=== PATIENT | male | born 1930 | race Caucasian/White ===

== ENCOUNTER 2016-07-01 10:49 | Inpatient (IN) | payer MEDICARE, OTHER ==
[2016-07-01] VITALS (12 sets, daily range): BP systolic 100–133; BP diastolic 53–78; PULSE 74–151; RESP 14–24; O2SAT 94–99
[~2016-07-01] VITALS: Ht 182.9 cm; Wt 92.0 kg
[~2016-07-01 10:49] MED LIST: ACET325C PO; ALBU8.5H2 INHALATION; ATOR20TA65 PO; BECL8.7A6 INH; BENA20TA PO; DILT120C52 PO; FURO40TA4 PO; GABA800T2 PO; GUAI600T2 PO; HYDR-4003 PO; MAGN400C PO; MELA1TAB21 PO; NAM10 PO; OMEG-38 PO; OSLT75C PO; TIOT18CA3 IH; WARF2.5T82 PO; WARF5TAB7 PO; ZIT250 PO
--- NOTE | 2016-07-01 11:24 | ED.REPORT ---
HPI-General Illness Date of Service Jul 01, 2016 ED Provider: Joce Dennis MD Patient is an 86 year old male on Coumadin who presents to the ED after being referred by urgent care for a stiff neck onset 3 days ago. Associated symptoms include neck pain with movement in all directions. He denies recent trauma, fever, headache, numbness, weakness, myalgia, rash, or any other symptoms. He had a fever at urgent care. Today he has only had his regular medications today. Tylenol made his neck pain bearable for the past two days. Nursing Notes Stated Complaint: POSS MENINGITIS Chief Complaint: General Complaint Nursing Notes Reviewed: Yes ([employer] not reconciled - EMR indicates ho warfarin use) Allergies: Coded Allergies: pravastatin (Verified Allergy, Unknown, 06/20/16) Scheduled Atorvastatin Calcium (Atorvastatin Calcium) 20 Mg Tablet 20 MG PO HS Azithromycin (Zithromax) 250 Mg Tablet 250 MG PO DAILY Beclomethasone Dipropionate (Qvar) 8.7 Gm Aer.w.adap 1-2 PUFFS INH BID Benazepril (Benazepril) 20 Mg Tablet 10 MG PO DAILY Diltiazem ER (Cartia XT) 120 Mg Cap.er.24h 120 MG PO BID Furosemide (Furosemide) 40 Mg Tablet 40 MG PO daily to BID Gabapentin (Gabapentin) 800 Mg Tablet 800 MG PO BID Magnesium Oxide (Magnesium) 400 Mg Capsule 400 MG PO DAILY Melatonin/Pyridoxine HCl (B6) (Melatonin 10 mg Tablet) 1 Each Tab.mphase 1 EACH PO HS Memantine (Namenda) 10 Mg Tablet 10 MG PO BID [place]-3/Dha/Epa/Fish Oil (Fish Oil 1,000 mg Softgel) 1 Each Capsule 1 EACH PO HS [place]-3/Dha/Epa/Fish Oil (Fish Oil 1,000 mg Softgel) 1 Each Capsule 2 EACH PO QAM Oseltamivir Phosphate (Tamiflu) 10 Cap/Pkg Capsule 75 MG PO BID Tiotropium [place] (Spiriva) 18 Mcg Cap.w.dev 18 MCG IH DAILY Warfarin Sodium (Warfarin Sodium) 2.5 Mg Tablet 2.5 MG PO M,W,F Warfarin Sodium (Warfarin Sodium) 5 Mg Tablet 5 MG PO ,,, Scheduled PRN Acetaminophen (Acetaminophen) 325 Mg Capsule 650 MG PO BID PRN PRN For Pain Albuterol HFA (Proair HFA) 8.5 Gm Hfa.aer.ad 2 PUFFS INHALATION q4-6 hours PRN PRN For Shortness of Breath Guaifenesin (Mucinex) 600 Mg Tablet.er 600 MG PO BID PRN PRN For Cough Hydrocodone-Acetaminophen 5-325 mg (Hydrocodone-Acetaminophen 5-325 mg) 1 Each Tablet 0.5-1 TABLET PO q6 hours PRN PRN For Pain General Time Seen by MD: 11:13 Chief Complaint Other (Neck pain) Hx Obtained From: Patient, Spouse Arrived By: Walk-in Sudden in Onset?: Yes Onset Occurred: 3 days ago Symptom Duration: Since onset Recent Healthcare: Recent hospitalization Similar Sx Previous: No Past Medical History Past Medical History Notes: Admit for pneumonia and influenza A and COPD Exacerbation 06/22/16 Past Medical History 1. History of lung CA medially located, left upper lobe lesion with an SUV of 6.26 seen on PET-CT scan dated December 30, 2014, as above, s/p radiation therapy with desiree Pimentel 2. Alzheimer's disease clinically presenting with early stage, on memantine 10 mg b.i.d. with good results per his significant other, which is his . 3. COPD, stable. The patient is able walk 1.5 miles per day without difficulty. 4. Atrial fibrillation, on Coumadin. 5. Type 2 diabetes, diet-controlled. 6. Hyperlipidemia. 7. Hypertension. 8. Sleep apnea. 9. Recurrent aspiration pneumonia Reports: Asthma, COPD, Diabetes mellitus Past Surgical History Two Left shoulder surgeries, replacement and subsequent revisions. prostate surgery, skin cancer surgery Reports: Appendectomy, Tonsillectomy Family History Reviewed, not relevant Smoking History Former Smoker Social History Other Social History: Good social support, , Local resident Ambulatory Status Independent Review of Systems +neck stiffness Full Review of Systems Constitutional: Denies: Fever GI: Denies: Nausea, Vomiting Musculoskeletal: Reports: Neck pain, Denies: Myalgia Skin: Denies Rash Neurologic: Denies: Headache, Numbness, Weakness Complete sys rev & neg: except as marked. Physical Exam Vital Signs Vital Signs Date Time Temp Pulse Resp B/P Pulse Ox O2 Delivery O2 Flow Rate FiO2 07/01/16 12:50 80 19 103/64 99 Room Air 07/01/16 11:16 36.5 94 24 119/77 99 Room Air 07/01/16 11:06 94 123/78 96 Room Air Initial VS: Reviewed, Unavailable, Vital signs normal Head / Eyes: Atraumatic, Normocephalic Neurologic: Alert, Oriented, Nonfocal Psychiatric: Mood/affect normal, Behavior normal, Normal thought content General/Constitutional: Awake, Alert, No acute distress, Well developed Hard hearing Neck: Atraumatic Does not want to move head for flexion, extention, or rotation. Respiratory / Chest: Atraumatic, No respiratory distress coarse lung sounds. Scattered rhonchi. No shortness of breath Cardiovascular: Peripheral circulation NL Abdomen: Atraumatic, Soft, Non-tender Skin: No rash Multiple bruisin on extremities (secondary to blood thinners) Interpretation & Diagnostics Lab Results Interpretation Result Diagram: 07/01/16 1133 07/01/16 1133 Test 07/01/16 11:13 07/01/16 11:33 Prothrombin Time 30.8sec (8.1-12.5) Prothromb Time International Ratio 2.82ratio White Blood Count 11.3th/mm3 (3.8-10.1) Red Blood Count 4.51mil/mm3 (4.40-5.80) Hemoglobin 14.4g/dL (13.8-17.2) Hematocrit 43.5% (41.0-50.0) Mean Corpuscular Volume 96.5fL (81-100) Mean Corpuscular Hemoglobin 31.9pg (27.0-35.0) Mean Corpuscular Hemoglobin Concent 33.1% (32.0-37.0) Red Cell Distribution Width 14.5% (12.3-15.4) Platelet Count 201bil/L (150-400) Neutrophils (%) (Auto) 77.0% (40-74) Lymphocytes (%) (Auto) 6.0% (14-46) Monocytes (%) (Auto) 15.8% (4-12) Eosinophils (%) (Auto) 0.6% (0-5) Basophils (%) (Auto) 0.2% (0-3) Sodium Level 139mEq/L (134-144) Potassium Level 4.2mEq/L (3.5-5.2) Chloride Level 100mEq/L (97-108) Carbon Dioxide Level 30mmol/L (18-29) Blood Urea Nitrogen 23mg/dL (8-27) Creatinine 0.55mg/dL (0.76-1.27) Estimat Glomerular Filtration Rate 150mL/min (>59) Glucose Level 107mg/dL (60-99) Lactic Acid Level 1.4mmol/L (0.4-2.0) Calcium Level 8.8mg/dL (8.5-10.1) Total Bilirubin 0.5mg/dL (0.0-1.2) Aspartate Amino Transf (AST/SGOT) 26U/L (0-50) Alanine Aminotransferase (ALT/SGPT) 26U/L (0-44) Alkaline Phosphatase 53U/L (25-160) Total Protein 7.6g/dL (6.4-8.4) Albumin 3.1g/dL (3.4-5.0) Lab Results Interpretation: CMP mild leukocytosis CMP normal INR therapeutic (patient reports INR greater than 4 over this week and was decreased) Lactic acid normal Cultures pending X-Ray Chest Interpretation Chest Xray Interpretation: IMPRESSION: No definite interval change or acute disease. Chronic diffuse/interstitial lung disease. Dictated by: Earl Canas M.D. on 07/01/2016 at 12:15 Approved by: Earl Canas M.D. on 07/01/2016 at 12:15 View: Portable, 1 view Interpretation / Wet Read by: Interpret - Radiologist CT Head Interpretation BRAIN CT: IMPRESSION: No acute intracranial process Mild right maxillary sinus disease Dictated by: Earl Canas M.D. on 07/01/2016 at 13:05 Approved by: Earl Canas M.D. on 07/01/2016 at 13:05 Study: Head CT no contrast Interpretation / Wet Read by: Interpret - Radiologist CT C-Spine Interpretation IMPRESSION: No acute fracture Severe diffuse cervical disc degeneration and facet arthropathy. Dictated by: Earl Canas M.D. on 07/01/2016 at 13:03 Approved by: Earl Canas M.D. on 07/01/2016 at 13:03 Study type: CT no contrast Interpretation / Wet Read by: Interpret - Radiologist Re-Eval/Medical Decision Med Decision/Clinical Course This is an 86-year-old male with a recent hospitalization for influenza and pneumonia status post treatment with antibiotics and Tamiflu now presents referred from urgent care with concern for meningitis. He presents complaining of severe neck stiffness with any movement, and a fever documented in urgent care. He denies rash or exanthem, denies new focal numbness or weakness or paresthesia, reports the neck stiffness is very considerable and very uncomfortable. He is not febrile in the emergency department. He does not appear to Source of Hx: Old records Time of Eval: 14:02 Re-Evaluation/Progress Note: rechecked patient. Discussed plan for treatment and desire for admission. Patient understands and agrees with plan. All questions addressed at this time. Consultation : Referral / Consult Name: Wilfrid Long MD Consulted With: Hospitalist Call Returned at: 14:23 Foxer: Agrees with eval, Agrees with plan, Accepts admit Note: Discussed patient's case. Accepts admit. Counseled Regarding: Diagnosis, Lab results, Need for admission Discharge & Departure Primary Impression: Neck stiffness Additional Impression: Anticoagulated on Coumadin Disposition: ADMITTED TO HOSPITAL Referrals: Cy Soto MD (PCP) Scribe Attestation Portions of this note were transcribed by Willy Ledezma. I, Dr. Dennis personally performed the history, physical exam and medical decision-making; I reviewed and confirmed the accuracy of the information in the transcribed note. Signed by: Willy Ledezma 07/01/16, 1430 copies to: Cy Soto MD, Matthew F MD Jul 01, 2016 11:24 WILLY LEDEZMA Jul 01, 2016 11:30
[2016-07-01] MEDS ORDERED: HYDROmorphone 0.5 mg/0.5 mL iSecure Syringe IVPUSH PRN (11:50)
[2016-07-01] MEDS ORDERED: Ondansetron 2 mg/mL 2 mL Inj IVPUSH ONE (11:50)
[2016-07-01] MEDS ORDERED: cefTRIAXone Inj 2,000 MG in IV Premix 1 EACH IV ONE (11:50)
[2016-07-01 12:10] LABS: BASOPHILS % (AUTO) 0.2 % (0-3); EOSINOPHILS % (AUTO) 0.6 % (0-5); MONOCYTES % (AUTO) 15.8 % (4-12); Mean Corpuscular Hemoglobin 31.9 pg (27.0-35.0); Mean Corpuscular Volume 96.5 fL (81-100); Platelet Count 201 bil/L (150-400)
--- NOTE | 2016-07-01 12:16 | DRSVH ---
PROCEDURE: X-RAY CHEST ONE VIEW, PORTABLE ([id number]) INDICATIONS: ro pneumonia TECHNIQUE: One view of the chest was acquired. COMPARISON: [facility], CT, CT CHEST WO CON, 05/29/2016, 9:17. Outside Film, RG, CHEST 2VW , 09/04/2015, 12:49. Outside Film, RG, CHEST 1VW (PORTABLE) , 09/06/2015, 7:13. [facility], CR, XR CHEST 2VW, 06/20/2016, 12:00. FINDINGS: Surgical changes and devices: Bilateral shoulder arthroplasties Lungs and pleura: No pleural effusions or pneumothorax. Lungs are clear. Diffuse/interstitial rodriguez ges Mediastinum: Mediastinal contours appear normal. Heart size is normal. Bones and chest wall: No suspicious bony lesions. Overlying soft tissues appear unremarkable. IMPRESSION: No definite interval change or acute disease. Chronic diffuse/interstitial lung disease. Dictated by: Earl Canas M.D. on 07/01/2016 at 12:15 Approved by: Earl Canas M.D. on 07/01/2016 at 12:15
[2016-07-01 12:41] LABS: INR 2.82 ratio
--- NOTE | 2016-07-01 13:05 | DRSVH ---
PROCEDURE: CT CERVICAL SPINE WITHOUT CONTRAST ([id number]) INDICATIONS: pain TECHNIQUE: Noncontrast 3 mm thick sections acquired from the skull base to the T4 level. Sagittal and coronal r eformats were then constructed. For radiation dose reduction, the following was used: automated exp osure control, adjustment of mA and/or kV according to patient size. COMPARISON: [facility], CT, CT CHEST WO CON, 05/29/2016, 9:17. [facility], CT, CHEST W/O CONTRAST, 12/15/2014, 13:20. FINDINGS: Image quality: Excellent. Bones: No fractures or dislocations. Visualized superior ribs are intact. Diffuse cervical disc de generation and facet arthropathy with reversal of the normal cervical lordosis. Minimal grade 1 anter olisthesis of C3 on C4. Diffuse osteopenia Soft tissues: Prevertebral soft tissues are normal in thickness. Prominent left upper lobe nodular c onsolidation better characterized on recent chest CT dated 05/29/16. No paravertebral hematomas. No a pical pneumothoraces. IMPRESSION: No acute fracture Severe diffuse cervical disc degeneration and facet arthropathy. Dictated by: Earl Canas M.D. on 07/01/2016 at 13:03 Approved by: Earl Canas M.D. on 07/01/2016 at 13:03
--- NOTE | 2016-07-01 13:07 | DRSVH ---
PROCEDURE: CT BRAIN WITHOUT CONTRAST ([id number]) INDICATIONS: pain TECHNIQUE: Noncontrast 4.5 mm thick angled axial sections acquired from the foramen magnum to the vertex, with c oronal reformats. COMPARISON: None. FINDINGS: Image quality: Excellent. CSF spaces: Basal cisterns are patent. No extra-axial fluid collections. The ventricles are symmet suzi in size and shape. Brain: No intracranial bleeds or masses. There is cerebral volume loss for age, with resultant vent ricular and sulcal prominence. There are periventricular and deep white matter chronic small vessel ischemic changes. There is intracranial internal carotid artery atherosclerosis. Skull and face: Calvarium and visualized facial bones appear intact, without suspicious lesions. Sinuses: Mild right maxillary sinus disease IMPRESSION: No acute intracranial process Mild right maxillary sinus disease Dictated by: Earl Canas M.D. on 07/01/2016 at 13:05 Approved by: Earl Canas M.D. on 07/01/2016 at 13:05
[2016-07-01] MEDS ORDERED: 0.9% Sodium Chloride 250 ML IV ONE (13:20)
[2016-07-01] MEDS ORDERED: Alum-Mag Hydrox-Simeth 30 mL Suspension PO PRN (16:50)
[2016-07-01] MEDS ORDERED: Ondansetron 2 mg/mL 2 mL Inj IVPUSH PRN (16:50)
[2016-07-01] MEDS ORDERED: Polyethylene Glycol (PEG) 17 Gm Powder PO PRN (16:50)
--- NOTE | 2016-07-01 17:13 | NUR ---
Admission Patient admitted to the floor at 1515 from the ED. Medical list and admission questions completed. Patient complained of neck pain at 4/10 with no movement and 8/10 with movement. Vitals - t-36.8, bp-133/75, p-85, rr-19, o2- 97 on RA. Oriented patient to the room. Placed bed in lowest position and call light within reach.
[2016-07-01 17:35] LABS: INR 2.41 ratio
--- NOTE | 2016-07-01 18:46 | PCM.HPMED ---
Subjective Date of Service Jul 01, 2016 Primary Provider: Admitting Physician: Wilfrid Long MD Primary Care Physician: Cy Soto MD Attending Physician: Wilfrid Long MD Admit Status: From the Emergency Department Chief Complaint: Fever of 101 with neck stiffness for 3 days. History of Present Illness: He was recently admitted and treated for pneumonia and influenza. After discharge he developed a fever up to 101 today and has had 3 days of increasing neck stiffness, quite severe. There has been no headache and no rash. His INR is too high at 2.8 to proceed with a spinal fluid tap and so the lumbar puncture will be deferred waiting for the fresh frozen plasma to bring the INR down. His presenting white blood count is only 11.3. There is no neck trauma. He will be given ceftriaxone as a precaution. The CT of the C-spine and brain are normal. He was just in the hospital 10 days ago for Influenza and Pneumonia, discharging after 2 nights on Tamiflu and Zithromax, which he has completed just 3 days ago. He has had a mild cough but no chest pain or shortness of breath. He is very [place] so his speaks for him. He also has early Alzheimers. Review of Systems: No Chills, Sweats, SOB, Chest Pain, Abdominal Pain, Seizures, Headache, bleeding , dysuria, Joint pains, depression, new allergies, diarrhea, Positive for hearing loss, chronic cough, fever, neck pain. Allergies Coded Allergies: pravastatin (Verified Allergy, Unknown, 06/20/16) Home Medications Atorvastatin Calcium (Atorvastatin Calcium) 20 Mg Tablet 20 MG PO HS (Reported) Azithromycin (Zithromax) 250 Mg Tablet 250 MG PO DAILY Prescribed by: ISELA GUTIERREZ DO Beclomethasone Dipropionate (Qvar) 8.7 Gm Aer.w.adap 1-2 PUFFS INH BID (Reported ) Benazepril (Benazepril) 20 Mg Tablet 10 MG PO DAILY (Reported) Diltiazem ER (Cartia XT) 120 Mg Cap.er.24h 120 MG PO BID (Reported) Furosemide (Furosemide) 40 Mg Tablet 40 MG PO daily to BID (Reported) Gabapentin (Gabapentin) 800 Mg Tablet 800 MG PO BID (Reported) Magnesium Oxide (Magnesium) 400 Mg Capsule 400 MG PO DAILY (Reported) Melatonin/Pyridoxine HCl (B6) (Melatonin 10 mg Tablet) 1 Each Tab.mphase 1 EACH PO HS (Reported) Memantine (Namenda) 10 Mg Tablet 10 MG PO BID (Reported) [place]-3/Dha/Epa/Fish Oil (Fish Oil 1,000 mg Softgel) 1 Each Capsule 1 EACH PO HS (Reported) [place]-3/Dha/Epa/Fish Oil (Fish Oil 1,000 mg Softgel) 1 Each Capsule 2 EACH PO QAM (Reported) Oseltamivir Phosphate (Tamiflu) 10 Cap/Pkg Capsule 75 MG PO BID Prescribed by: ISELA GUTIERREZ DO Tiotropium [place] (Spiriva) 18 Mcg Cap.w.dev 18 MCG IH DAILY (Reported) Warfarin Sodium (Warfarin Sodium) 2.5 Mg Tablet 2.5 MG PO ,, (Reported) Warfarin Sodium (Warfarin Sodium) 5 Mg Tablet 5 MG PO ,,, (Reported) As needed Acetaminophen (Acetaminophen) 325 Mg Capsule 650 MG PO BID PRN PRN For Pain ( Reported) Albuterol HFA (Proair HFA) 8.5 Gm Hfa.aer.ad 2 PUFFS INHALATION q4-6 hours PRN PRN For Shortness of Breath (Reported) Guaifenesin (Mucinex) 600 Mg Tablet.er 600 MG PO BID PRN PRN For Cough (Reported ) Hydrocodone-Acetaminophen 5-325 mg (Hydrocodone-Acetaminophen 5-325 mg) 1 Each Tablet 0.5-1 TABLET PO q6 hours PRN PRN For Pain (Reported) PMH 1. Metabolically active, medially located left upper lobe lesion with an SUV of 6.26 seen on PET-CT scan dated December 30, 2014, without evidence of distant spread. The patient is status post definitive radiation therapy with Dr. Pimentel in June 2015. He remains in clinical remission at this time. 2. Early stage Alzheimer's disease. 3. COPD. 4. Atrial fibrillation, on Coumadin. 5. Type 2 diabetes. 6. Hyperlipidemia. 7. Hypertension. 8. Sleep apnea with use of CPAP Surgical History Appendectomy Tonsillectomy Prostate surgery Skin cancer removal Left shoulder surgery Family History No cancer or blood clots Social History Hx Alcohol Use: No Hx Substance Use: No Hx Tobacco Use: Yes Smoking Status: Former Smoker Additional Information He lives with his in [place]. His speaks for him as he has mild dementia and poor hearing. His PCP is Dr. Soto Exam Vital Signs Vital Sign - Last Date Time Temp Pulse Resp B/P Pulse Ox O2 Delivery O2 Flow Rate FiO2 07/01/16 15:17 36.8 151 19 133/75 97 Room Air Exam He is alert and oriented to name. He smiles and defers to his . He is hard of hearing. Pupils are equally round and reactive to light and accommodation. Extraocular muscles are intact. Sclera are pink and nonicteric. Throat has no redness. There are no lymph nodes felt in the head, neck, supraclavicular area. There is no thyromegaly. JVD is less than 6 cm. No carotid bruits are heard. Heart is irregularly irregular without murmur. Lungs have wheezes bilaterally. Abdomen is soft, nontender, bowel tones are normal, there is no organomegaly. There is no ankle edema. Neuro exam is noted for less than 5 rotation range of motion of his neck bilaterally due to severe neck pain. There is no posterior neck tenderness or upper back muscle tenderness. There is no photophobia. Motor function is 4 out of 5 throughout. Deep tendon reflexes are normal. There is no tremor. Skin has multiple bruises on his arms with chronic discoloration of his ankle skin. Lab and Diagnostics Result Diagram: 07/01/16 1133 07/01/16 1133 X-Rays, CTs and MRIs CT BRAIN WITHOUT CONTRAST ([id number]) INDICATIONS: pain TECHNIQUE: Noncontrast 4.5 mm thick angled axial sections acquired from the foramen magnum to the vertex, with coronal reformats. COMPARISON: None. FINDINGS: Image quality: Excellent. CSF spaces: Basal cisterns are patent. No extra-axial fluid collections. The ventricles are symmetric in size and shape. Brain: No intracranial bleeds or masses. There is cerebral volume loss for age , with resultant ventricular and sulcal prominence. There are periventricular and deep white matter chronic small vessel ischemic changes. There is intracranial internal carotid artery atherosclerosis. Skull and face: Calvarium and visualized facial bones appear intact, without suspicious lesions. Sinuses: Mild right maxillary sinus disease IMPRESSION: No acute intracranial process Mild right maxillary sinus disease Additional Diagnostics: CT CERVICAL SPINE WITHOUT CONTRAST ([id number]) INDICATIONS: pain TECHNIQUE: Noncontrast 3 mm thick sections acquired from the skull base to the T4 level. Sagittal and coronal reformats were then constructed. For radiation dose reduction, the following was used: automated exposure control, adjustment of mA and/or kV according to patient size. COMPARISON: [facility], CT, CT CHEST WO CON, 05/29/2016, 9:17. [facility], CT, CHEST W/O CONTRAST, 12/15/2014, 13:20. FINDINGS: Image quality: Excellent. Bones: No fractures or dislocations. Visualized superior ribs are intact. Diffuse cervical disc degeneration and facet arthropathy with reversal of the normal cervical lordosis. Minimal grade 1 anterolisthesis of C3 on C4. Diffuse osteopenia Soft tissues: Prevertebral soft tissues are normal in thickness. Prominent left upper lobe nodular consolidation better characterized on recent chest CT dated 05/29/16. No paravertebral hematomas. No apical pneumothoraces. IMPRESSION: No acute fracture Severe diffuse cervical disc degeneration and facet arthropathy. Assessment & Plan Possible Meningits -high fever and neck stiffness -INR 2.8 before FFP -Give additional FFP after repeat INR is 2.4 -proceed with LP when INR less than 1.5 -Begin Rocephin and discuss treatment duration with ID once the CSF has been collected. -with Fever/Severe Neck pain/stiffness and antibiotics given well before CSF collection it is likely that the duration of IV antibiotics will be equivalent to standard Bacterial Meningitis therapy even if the CSF culture is ultimately negative. Recent Influenza Pneumonia -No symptoms or exam/test findings to suggest recurrence. Atrial Fibrillation -Hold Coumadin until LP can be safely done and chances of bleeding are back to baseline after the LP is done. -Continue Diltiazem Hypertension -Continue Benazepril and Lasix Alzheimers Dementia -His has been helpful and the patient is not agitated or anxious, despite the neck pain Metabolically active, medially located left upper lobe lesion with an SUV of 6.26 seen on PET-CT scan dated December 30, 2014, without evidence of distant spread. The patient is status post definitive radiation therapy with Dr. Pimentel in June 2015. He remains in clinical remission at this time. COPD. -Continue Qvar, Albuterol and Spiriva Type 2 diabetes. -Continue Dietary control Hyperlipidemia. -Continue Lipitor Sleep apnea with use of CPAP Resuscitation Status: CPR: Attempt Resuscitation Wilfrid Long MD Jul 01, 2016 15:37
[2016-07-01 22:27] LABS: INR 2.03 ratio
[2016-07-02] VITALS (14 sets, daily range): BP systolic 115–143; BP diastolic 65–81; PULSE 72–97; RESP 14–22; O2SAT 91–98
--- NOTE | 2016-07-02 05:29 | NUR ---
FFP administration FFP x1 unit given in ED and FFPx3 units given on shift production supervisor on [facility]. No reaction. Per MD pt needs to have INR LESS THAN 1.5 to do the spinal tap. Next INR draw at 0500.
[2016-07-02 06:36] LABS: INR 1.76 ratio
[2016-07-02 06:44] LABS: BASOPHILS % (AUTO) 0.2 % (0-3); EOSINOPHILS % (AUTO) 1.6 % (0-5); MONOCYTES % (AUTO) 13.2 % (4-12); Mean Corpuscular Hemoglobin 31.9 pg (27.0-35.0); Mean Corpuscular Volume 97.5 fL (81-100); NEUTROPHILS % (AUTO) 76.8 % (40-74); Platelet Count 203 bil/L (150-400)
[2016-07-02 08:48] LABS: APPEARANCE,URINE CLEAR (CLEAR,HAZY); COLOR,URINE YELLOW (YELLOW)
[2016-07-02 08:49] LABS: OCCULT BLOOD,URINE TRACE (NEGATIVE); UROBILINOGEN,URINE NORMAL (NORMAL)
[2016-07-02] MEDS: 0.9% Sodium Chloride 250 ML IV SCH (09:18)
[2016-07-02 09:50] LABS: INR 1.73 ratio
--- NOTE | 2016-07-02 10:00 | NUR ---
FFP administration administered 1un FFP. INR 1.76 and needs to be 1.5 or less for spinal tap. pts vital signs remain within normal limits and not reaction occurred. per MD orders, nurse ordered protime 2hrs post transfusion.
[2016-07-02] MEDS: Diltiazem CD 120 mg ER24 Capsule PO SCH ×2 (13:12→20:22)
[2016-07-02 14:15] LABS: INR 1.55 ratio
--- NOTE | 2016-07-02 15:00 | NUR ---
Inpatient from day of admit, [facility] signed
--- NOTE | 2016-07-02 18:04 | PCM.PNMED ---
Subjective Date of Service Jul 02, 2016 Subjective Overnight: No acute events Today: States he feels well, unable to turn head; denies SOB, CP. Able to lift knees to chest without pain Exam Vital Signs Vital Sign - Last Date Time Temp Pulse Resp B/P Pulse Ox O2 Delivery O2 Flow Rate FiO2 07/02/16 06:00 76 07/02/16 04:28 36.8 14 122/76 07/01/16 20:52 94 Room Air Intake and Output 07/01/16 07/01/16 07/02/16 Cumulative From/Thru 15:00 23:00 07:00 07/01/16 11:17 - 07/02/16 06:38 Intake Total 400 ml 887 ml 1287 ml Balance 400 ml 887 ml 1287 ml Intake Oral 400 ml 0 ml 400 ml IV Total 262 ml 262 ml Packed Cells 420 ml 420 ml FFP 205 ml 205 ml # Voids 2 1 3 # Bowel Movements 0 0 Exam General: No acute distress, well-developed, well-nourished, appropriately interactive. Pt is laying supine without supplemental oxygen HENT: Normocephalic, atraumatic. External ears without defect. Anicteric sclerae , moist conjunctivae. Oropharynx with moist mucosa. Neck: Supple; reported pain with left-right horizontal movements; minimal to no pain reported with vertical movements Cardiovascular: Irregularly irregular rhythm; no murmur Pulmonary: Adequate air flow all oneil; mild wheeze bilateral at mid-upper oneil; Normal respiratory effort with no use of accessory muscles. Abdomen: Bowel tones present. Soft, nontender, nondistended. Extremities: No clubbing, cyanosis appreciated. Skin: Warm and dry Psychiatric: Normal mood and affect. Alert and oriented to person, place, and time. Neuro: CNII-XII grossly intact; speech normal; facial expressions symmetric Lab and Diagnostics Result Diagram: 07/02/16 0553 07/01/16 1133 X-Rays, CTs and MRIs CT BRAIN WITHOUT CONTRAST ([id number]) INDICATIONS: pain TECHNIQUE: Noncontrast 4.5 mm thick angled axial sections acquired from the foramen magnum to the vertex, with coronal reformats. COMPARISON: None. FINDINGS: Image quality: Excellent. CSF spaces: Basal cisterns are patent. No extra-axial fluid collections. The ventricles are symmetric in size and shape. Brain: No intracranial bleeds or masses. There is cerebral volume loss for age , with resultant ventricular and sulcal prominence. There are periventricular and deep white matter chronic small vessel ischemic changes. There is intracranial internal carotid artery atherosclerosis. Skull and face: Calvarium and visualized facial bones appear intact, without suspicious lesions. Sinuses: Mild right maxillary sinus disease IMPRESSION: No acute intracranial process Mild right maxillary sinus disease Additional Diagnostics CT CERVICAL SPINE WITHOUT CONTRAST ([id number]) INDICATIONS: pain TECHNIQUE: Noncontrast 3 mm thick sections acquired from the skull base to the T4 level. Sagittal and coronal reformats were then constructed. For radiation dose reduction, the following was used: automated exposure control, adjustment of mA and/or kV according to patient size. COMPARISON: [facility], CT, CT CHEST WO CON, 05/29/2016, 9:17. [facility], CT, CHEST W/O CONTRAST, 12/15/2014, 13:20. FINDINGS: Image quality: Excellent. Bones: No fractures or dislocations. Visualized superior ribs are intact. Diffuse cervical disc degeneration and facet arthropathy with reversal of the normal cervical lordosis. Minimal grade 1 anterolisthesis of C3 on C4. Diffuse osteopenia Soft tissues: Prevertebral soft tissues are normal in thickness. Prominent left upper lobe nodular consolidation better characterized on recent chest CT dated 05/29/16. No paravertebral hematomas. No apical pneumothoraces. IMPRESSION: No acute fracture Severe diffuse cervical disc degeneration and facet arthropathy. Assessment & Plan Ricardo Tillman is an 86 year old male with history of COPD, asthma, lung cancer s/p radiation, recurrent aspiration pneumonia, diabetes mellitus, atrial fibrillation, hypertension, hyperlipidemia, and dementia, who presented to [facility] emergency department complaining of neck pain x3 day duration. He was admitted for evaluation and treatment of suspected meningitis. - Hospital day 2 Suspected meningitis, acute, present on admission. Under therapy - Pt reported elev temp and neck stiffness on admission - No LP completed prior to abx admin secondary to therapeutic INR - On admit INR: 2.82; INR goal for LP < 1.5 - s/p FFP x3 - INR in am - Recommend consultation with ID in am prior to obtaining LP: Place consult and call - Abx have already been started - May not be useful - Therapies: Ceftriaxone 2g q12h, acyclovir 10mg/kg q8h, dexamethasone 10mg IV q6h x4 days Atrial Fibrillation, chronic. Presumed stable -Continue Diltiazem - Considering pt's dementia and risk of adverse events, warfarin will NOT be continued at DC - Discussed with at bedside; she agrees - Recommend outpatient conversation with PCP Hypertension, chronic. Stable -Continue ACEi and Lasix Alzheimers Dementia, chronic. Stable -His has been helpful and the patient is not agitated or anxious, despite the neck pain Metabolically active, medially located left upper lobe lesion, chronic. Presumed stable - Seen on PET-CT scan dated December 30, 2014, without evidence of distant spread. The patient is status post definitive radiation therapy with Dr. Pimentel in June 2015. He remains in clinical remission at this time. COPD, stable -Duonebs QIDWA + accunebs q2h prn - Budesonide BID Type 2 diabetes, chronic. Stable -Continue Dietary control Hyperlipidemia, stable -Continue Lipitor Sleep apnea with use of CPAP, chronic. Stable - PRN: Fever/antiemetics/pain/bowel - DVT: SCDs - GI: None - Diet: General - Code: FULL CODE Dispo: Likely to remain additional 1-2 days pending medical stability and ease of obtaining results. No anticipated needs at this time, other than PT to work on his neck. Pain Evaluation: Adequate Pain Control VTE Mechanical Devices: Intermittant Pneumatic CD Resuscitation Status: CPR: Attempt Resuscitation Attending Statement The patient was seen and examined together with Dr. Marquis on 07/02/2016 and I agree with the history, exam and plan as outlined in the note above. Ariane Marquis DO Jul 02, 2016 08:49 Nazario Doherty MD Jul 03, 2016 09:17
[2016-07-02] MEDS ORDERED: guaiFENesin 600 mg ER12 Tablet PO PRN (18:05)
[2016-07-02] MEDS ORDERED: Albuterol 2.5 mg/3 mL Inhalation Solution NEB PRN (18:10)
[2016-07-02] MEDS ORDERED: 0.9% Sodium Chloride 100 ML ONE (18:32)
[2016-07-02] MEDS: Dexamethasone Inj 10 MG in 0.9% Sodium Chloride-Pha MIX 50 ML IV SCH ×2 (18:38→23:03)
[2016-07-02] MEDS: SODIUM CHLORIDE 0.9% IV SCH (19:32)
[2016-07-02] MEDS: ACYCLOVIR IV SCH (19:32)
[2016-07-02] MEDS: Budesonide 0.5 mg/2 mL Inhalation Solution NEB SCH (20:03)
[2016-07-02] MEDS: Albuterol-Ipratropium 3 mL Inhalation Solution NEB SCH (20:03)
[2016-07-02] MEDS: cefTRIAXone Inj 2,000 MG in IV Premix 1 EACH IV SCH (21:01)
[2016-07-03] VITALS (13 sets, daily range): BP systolic 106–125; BP diastolic 57–76; PULSE 30–97; RESP 18–20; O2SAT 91–96
[2016-07-03] MEDS: ACYCLOVIR IV SCH ×2 (01:44→09:48)
[2016-07-03] MEDS: SODIUM CHLORIDE 0.9% IV SCH ×2 (01:44→09:48)
[2016-07-03] MEDS: Dexamethasone Inj 10 MG in 0.9% Sodium Chloride-Pha MIX 50 ML IV SCH ×2 (03:46→09:30)
[2016-07-03] MEDS: 0.9% Sodium Chloride 250 ML IV SCH (03:46)
[2016-07-03] MEDS: Albuterol-Ipratropium 3 mL Inhalation Solution NEB SCH ×4 (07:36→20:41)
[2016-07-03] MEDS: Budesonide 0.5 mg/2 mL Inhalation Solution NEB SCH ×2 (07:49→20:41)
[2016-07-03] MEDS: Diltiazem CD 120 mg ER24 Capsule PO SCH ×2 (08:11→21:19)
[2016-07-03] MEDS ORDERED: cefTRIAXone Inj 2,000 MG in IV Premix 1 EACH IV SCH (08:30)
--- NOTE | 2016-07-03 09:24 | NUR ---
Social Work Initial Assessment: SW met with patient and at bedside to discuss discharge plan. Patient resides with in 1 story home. Patient's home has 1 step with grab rails. Patient payer as Medicare and [employer]. 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 Patient PCP as MD Soto and PCP follow up appointment on Sun at 10:40am. Patient pharmacy of choice as [facility]. Patient current with [facility] for HHC services for HHC Rn, PT and OT services. Patient states HHC services not needed as patient independent at home with all needs. Patient states if HHC recommended at discharge, choice to continue services with [facility]. HHC choice list offered and declined. Patient has 02 via [employer], which he doesn't use, CPAP, walker and cane. Patient has no previous SNF history. Patient has AD and was encourage to bring in from home. PT eval ordered. If HHC recommended, SW to restart services with [facility]. SW to follow for discharge recommendations. PLAN: Current with [facility]. Family not wanting HHC at discharge, but if recommended by therapy family in agreement to resume services. SW to await therapy eval. Brandt VITALE Addendum: 07/03/16 at 0929 by ASHLEE GATES Amended: Links added. Addendum: 07/03/16 at 1140 by ASHLEE GATES SHASHI provided access to [facility] preemptively if HHC recommended. Brandt VITALE
[2016-07-03 09:31] LABS: BASOPHILS % (AUTO) 0.1 % (0-3); EOSINOPHILS % (AUTO) 0 % (0-5); MONOCYTES % (AUTO) 2.3 % (4-12); Mean Corpuscular Hemoglobin 32.1 pg (27.0-35.0); Mean Corpuscular Volume 94.9 fL (81-100); NEUTROPHILS % (AUTO) 92.8 % (40-74); Platelet Count 233 bil/L (150-400)
--- NOTE | 2016-07-03 10:26 | PCM.PNMED ---
Subjective Date of Service Jul 03, 2016 Subjective Overnight: No acute events Today: States he feels well, able to look to side with limited motion,which patient states has been such for a long time; denies SOB, CP. Able to lift knees to chest and bring chin down to chest without pain Exam Vital Signs Vital Sign - Last Date Time Temp Pulse Resp B/P Pulse Ox O2 Delivery O2 Flow Rate FiO2 07/03/16 09:45 36.3 82 20 113/64 93 Room Air 07/03/16 06:05 2.00 Intake and Output 07/02/16 07/02/16 07/03/16 Cumulative From/Thru 15:00 23:00 07:00 07/01/16 11:17 - 07/03/16 01:44 Intake Total 189 ml 1527 ml 249 ml 3252 ml Balance 189 ml 1527 ml 249 ml 3252 ml Intake Oral 1208 ml 1608 ml IV Total 319 ml 249 ml 830 ml Packed Cells 420 ml FFP 189 ml 394 ml # Voids 4 7 # Bowel Movements 0 Exam General: NAD, well-developed, well-nourished, hard of hearing, but appropriately interactive. Pt comfortably on RA HENT: Normocephalic, atraumatic. Anicteric sclerae, moist conjunctivae. Oropharynx with moist mucus membranes Neck: Supple; limited due to tenderness on rotation; denies pain with extension and flexion Cardiovascular: Irregularly irregular rhythm; no murmur Pulmonary: Adequate air flow all oneil; mild wheezes bilaterally at mid oneil ; Normal respiratory effort with no use of accessory muscles. Abdomen: Bowel tones present. Soft, nontender, nondistended. Extremities: No clubbing, edema, cyanosis appreciated. Skin: Warm and dry Psychiatric: Normal mood and affect. Alert and oriented to person, place, and time. Neuro: CNII-XII grossly intact IVs and Medications Medications Reviewed: Medications were reviewed in detail Lab and Diagnostics Result Diagram: 07/03/1692107/03/16921 X-Rays, CTs and MRIs CT BRAIN WITHOUT CONTRAST ([id number]) INDICATIONS: pain TECHNIQUE: Noncontrast 4.5 mm thick angled axial sections acquired from the foramen magnum to the vertex, with coronal reformats. COMPARISON: None. FINDINGS: Image quality: Excellent. CSF spaces: Basal cisterns are patent. No extra-axial fluid collections. The ventricles are symmetric in size and shape. Brain: No intracranial bleeds or masses. There is cerebral volume loss for age , with resultant ventricular and sulcal prominence. There are periventricular and deep white matter chronic small vessel ischemic changes. There is intracranial internal carotid artery atherosclerosis. Skull and face: Calvarium and visualized facial bones appear intact, without suspicious lesions. Sinuses: Mild right maxillary sinus disease IMPRESSION: No acute intracranial process Mild right maxillary sinus disease Additional Diagnostics CT CERVICAL SPINE WITHOUT CONTRAST ([id number]) INDICATIONS: pain TECHNIQUE: Noncontrast 3 mm thick sections acquired from the skull base to the T4 level. Sagittal and coronal reformats were then constructed. For radiation dose reduction, the following was used: automated exposure control, adjustment of mA and/or kV according to patient size. COMPARISON: [facility], CT, CT CHEST WO CON, 05/29/2016, 9:17. [facility], CT, CHEST W/O CONTRAST, 12/15/2014, 13:20. FINDINGS: Image quality: Excellent. Bones: No fractures or dislocations. Visualized superior ribs are intact. Diffuse cervical disc degeneration and facet arthropathy with reversal of the normal cervical lordosis. Minimal grade 1 anterolisthesis of C3 on C4. Diffuse osteopenia Soft tissues: Prevertebral soft tissues are normal in thickness. Prominent left upper lobe nodular consolidation better characterized on recent chest CT dated 05/29/16. No paravertebral hematomas. No apical pneumothoraces. IMPRESSION: No acute fracture Severe diffuse cervical disc degeneration and facet arthropathy. Assessment & Plan Ricardo Tillman is an 86 year old male with history of COPD, asthma, lung cancer s/p radiation, recurrent aspiration pneumonia, diabetes mellitus, atrial fibrillation, hypertension, hyperlipidemia, and dementia, who presented to [facility] emergency department complaining of neck pain x3 day duration. He was admitted for evaluation and treatment of suspected meningitis. - Hospital day 2 Possible meningitis, acute, present on admission. Under therapy - Pt reported elev temp and neck stiffness on admission - No LP completed prior to abx admin secondary to therapeutic INR - On admit INR: 2.82; INR goal for LP < 1.5 - s/p FFP x3 - INR 1.55 as of 07/02 - ID consult made, appreciate input - Abx have already been started - BCx negative for staph aureus - Procalcitonin <0.05 today - Will continue Ceftriaxone 2g q12h, acyclovir 10mg/kg q8h, dexamethasone 10mg IV q6h x4 days, until further ID recommendations Atrial Fibrillation, chronic. Presumed stable -Continue Diltiazem - Considering pt's dementia and risk of adverse events, warfarin will NOT be continued at DC - Discussed with at bedside; she agrees - Recommend outpatient conversation with PCP Hypertension, chronic. Stable -Continue ACEi and Lasix Alzheimers Dementia, chronic. Stable -His has been helpful and the patient is not agitated or anxious, despite the neck pain Metabolically active, medially located left upper lobe lesion, chronic. Presumed stable - Seen on PET-CT scan dated December 30, 2014, without evidence of distant spread. The patient is status post definitive radiation therapy with Dr. Pimentel in June 2015. He remains in clinical remission at this time. COPD, stable -Duonebs QIDWA + accunebs q2h prn - Budesonide BID Type 2 diabetes, chronic. Stable -Continue Dietary control Hyperlipidemia, stable -Continue Lipitor Sleep apnea with use of CPAP, chronic. Stable - PRN: Fever/antiemetics/pain/bowel - DVT: SCDs - GI: None - Diet: General - Code: FULL CODE Dispo: Likely discharge home tomorrow. VTE Mechanical Devices: Intermittant Pneumatic CD Resuscitation Status: CPR: Attempt Resuscitation Attending Statement The patient was seen and examined together with Dr. Arboleda on 07/03/2016 and I agree with the history, exam and plan as outlined in the note above. Giovanni Arboleda DO Jul 03, 2016 10:03 Nazario Doherty MD Jul 04, 2016 10:03
[2016-07-03] MEDS: cefTRIAXone Inj 2,000 MG in IV Premix 1 EACH IV SCH (11:06)
--- NOTE | 2016-07-03 18:02 | CONS ---
[address] [address] CONSULTATION REPORT PATIENT: VINCENT SHAH : 1930 MR#: [id number] ADMIT: 07/01/2016 JOB ID: [id number] DATE OF SERVICE: 07/03/2016 REASON FOR CONSULT: Possible neck infection or meningitis. I thank Dr. Arboleda for this consult. 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 The patient was recently admitted to this facility for influenza A and possible associated community-acquired pneumonia. He was treated for this as an inpatient between June 20 and June 22 and did very well and was discharged home. A week after the discharge, on or about June 29, the patient noted very severe neck pain and he was unable to move his neck either [id number] or [id number] without a great deal of pain. They went to the urgent care clinic to see what was going in terms of these symptoms and at that time the patient and his reported he had no fever or chills but an urgent care clinic evaluation found that he had a low-grade temperature. It is unclear to me if this temperature was 101 or 100.1, but in any event that led him to be sent on the to the emergency department for fever and stiff neck and, for that reason, the patient was subsequently admitted with a question about neck infection or even perhaps meningitis. Because the patient's INR was elevated, there was no ability to do a lumbar puncture though it was noted that the patient was relatively alert, had no additional fever or chills, and did not have labs that would ordinarily cause concern for meningitis. In any event, because there was no possibility of obtaining a lumbar puncture because of his anticoagulation, the patient was admitted and started on broad-spectrum antibiotics. Over the last couple of days since admission, he has dramatically improved and his neck pain has essentially miraculously vanished and he now has his normal range of motion of his head without any pain or discomfort whatsoever. He has had no additional symptoms consistent with infection, and he denies adamantly any fevers, chills or sweats during his hospital stay here. Additionally, the patient tells me that he has had no headache, no change in vision, no cough and really nothing else to suggest an ongoing meningeal process. PAST MEDICAL HISTORY: 1. COPD. 2. 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 3. Mild dementia. 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 5. Diabetes mellitus. 6. Hypertension. 7. Hyperlipidemia. 8. Status post left V1 ophthalmic zoster, resolved. 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 SOCIAL HISTORY: The patient is an ex-smoker. Lives with his in the local area. He is a nondrinker and he is retired. FAMILY HISTORY: Negative for TB. REVIEW OF SYSTEMS: Was done this afternoon. The patient is a bit hard of hearing and his helped me, but he actually is able to hear when you speak very loudly. He and his deny that he has had any recent headaches. His left eye has been slowly improving since the ophthalmic zoster which occurred late last year. He has no change in his vision now, no nasal symptoms, no sore throat or trouble swallowing. He did have a very stiff neck which led to this evaluation and admission but has completely resolved. He has no cough or shortness of breath. No nausea, vomiting, or diarrhea. No genitourinary symptoms and no significant pain in the extremities. PHYSICAL EXAMINATION: Reveals a gentleman who appears about his stated age of 86. He looks about the same as he has previously when I saw him in clinic. He has been afebrile since his readmission on the and so three days now without a fever. Temp 36.4, pulse 84, respiratory rate 20, blood pressure 107/57. He is in no acute distress saturating well on room air. Examination of the head reveals no evidence of trauma. The eyes notable for some latent erythema around the left orbit which the patient and his report is fading of the zoster lesions. There are no longer any blisters and he has normal extraocular movements. Conjunctivae normal. Oral cavity without thrush or hairy leukoplakia. His neck is reasonably supple now. His lateral motion bilaterally is restricted a bit as he is known to have cervical arthritis, but anterior-posterior motion of his neck is normal. His neck is nontender. There is no pain over the cervical or thoracic spine. His lungs are relatively clear. There are some crackles and occasional wheezes at the base, but this is normal for him. Cardiac exam without significant murmur. Currently sounds regular. Abdomen soft and nontender without organomegaly. He does not have a Rodríguez catheter. Extremities without evidence of synovitis, cellulitis or edema. Neurologically, he is intact. LABORATORIES: Include white count 9400. His white count has been 9-11,000 since readmission. His creatinine is 0.59. CRP 7.6. I am not certain what that is but could represent his underlying MAC or even recrudescent malignancy based on review of recent CTs. Procalcitonin is 0. Urinalysis without white cells. A single blood culture was positive for coag-negative staph, 1/4 bottles. Otherwise, we do not have any positive cultures and a MRSA screen from his admission two weeks ago was negative. IMAGING: Includes a brain CT which shows no notable changes, some mild maxillary sinus disease only. C-spine films show severe diffuse disk degeneration and facet arthropathy. Chest x-ray: Chronic interstitial disease. IMPRESSION: I see no evidence for meningitis, encephalitis or spine infection. The patient had a single low-grade temperature spike which was apparently recorded in Urgent Care before he was sent to the ED, but his ED vital signs and all his vital signs here in the hospital show no evidence of fever, and the patient looks utterly nontoxic. His procalcitonin is 0, arguing strongly against bacterial meningitis, and I see no reason to suspect herpes encephalitis at this point. RECOMMENDATIONS: 1. I would discontinue the acyclovir, ceftriaxone and dexamethasone he has been receiving. 2. I think the patient could be discharged at anytime without concern for untreated or partially treated meningitis.
[2016-07-04] VITALS (7 sets, daily range): BP systolic 97–120; BP diastolic 52–72; PULSE 74–98; RESP 20; O2SAT 92–96
--- NOTE | 2016-07-04 04:54 | NUR ---
Uneventful Night: Pt had an uneventful night, no c/o pain, chest pain or SOB while in bed. Pt slept most of the night, pleasant and cooperative with care.
[2016-07-04 06:33] LABS: BASOPHILS % (AUTO) 0 % (0-3); EOSINOPHILS % (AUTO) 0 % (0-5); MONOCYTES % (AUTO) 3.4 % (4-12); Mean Corpuscular Hemoglobin 32.4 pg (27.0-35.0); Mean Corpuscular Volume 95.3 fL (81-100); NEUTROPHILS % (AUTO) 93.8 % (40-74); Platelet Count 222 bil/L (150-400)
[2016-07-04] MEDS: Albuterol-Ipratropium 3 mL Inhalation Solution NEB SCH ×2 (08:15→11:44)
[2016-07-04] MEDS: Budesonide 0.5 mg/2 mL Inhalation Solution NEB SCH (08:21)
[2016-07-04] MEDS: 0.9% Sodium Chloride 250 ML IV SCH (08:25)
[2016-07-04] MEDS: Diltiazem CD 120 mg ER24 Capsule PO SCH (08:43)
--- NOTE | 2016-07-04 13:19 | NUR ---
Evaluation completed. Please go to "Notes" then click on "Assessments and Notes" (bottom left corner of screen). Then select appropriate discipline tab on top of screen.
--- NOTE | 2016-07-04 14:16 | PCM.DIMED ---
Giovanni Arboleda DO 07/04/16 1416: Discharge Instructions Date of Service Jul 04, 2016 Dates of Hospitalization Jul 01, 2016 at 14:48 Discharge Diagnosis Discharge Diagnosis Acute neck stiffness Atrial fibrillation Hypertension Metabolically active, medially located left upper lobe lesion s/p radiation therapy COPD Type 2 diabetes Hyperlipidemia Sleep apnea with CPAP Medication Instructions STOP taking Coumadin. Diet Heart Healthy, Diabetic Activity Limited until seen by PCP Call your provider Fever or Chills, Shortness of breath, Chest pain Patient Instructions STOP taking Coumadin. Follow-up Provider: Cy Soto MD Follow-up with PCP in: 1 week Nazario Doherty MD 07/05/16 1053: Giovanni Arboleda DO Jul 04, 2016 14:16 Nazario Doherty MD Jul 05, 2016 10:53
--- NOTE | 2016-07-04 14:24 | PROG NOTE ---
[address] [address] PROGRESS NOTE PATIENT: VINCENT SHAH : 1930 MR#: [id number] ADMIT: 07/01/2016 JOB ID: [id number] DATE: 07/04/2016 INFECTIOUS DISEASE FOLLOW UP NOTE: REASON FOR FOLLOW UP: Possible meningitis. INTERVAL HISTORY: Yesterday I had seen this patient and felt it was very unlikely he had meningitis and recommended his antibiotics and steroids be discontinued. The decision had been made to observe him one more day in the hospital. Today, the patient states he feels back to his normal state of health. He had trouble sleeping last night but had no fevers chills, sweats, stiff neck, headache or cough. PHYSICAL EXAMINATION: Reveals a comfortable gentleman in no acute distress. Temperature 36.6, pulse 76, respiratory rate 20, blood pressure 97/60, saturating well on room air. His mental status is at baseline. He has a mild underlying dementia but is able to converse and is pretty sharp today. Oral cavity negative. The left eye has no active lesions of herpes zoster and recall that this patient was treated two months ago for herpes zoster ophthalmicus and still has a bit of residual erythema and pain there. Lungs reasonably clear. Posteriorly a few crackles are heard as well as some decreased breath sounds. Abdomen benign. LABORATORIES: Today include a white count of 22,000 which is almost certainly a reaction to the high-dose dexamethasone he got as empiric treatment for what was thought to be meningitis. His creatinine is 0.54, pro calcitonin 0. One of four blood cultures is growing a coag-negative staph which is almost certainly a contaminant. There is no new imaging. IMPRESSION: I see no evidence for pharyngitis or any other ongoing serious infection in this elderly gentleman. He has underlying MAC and a variety of other issues including recent V1 left-sided zoster, but at this point, he looks fine. RECOMMENDATIONS: 1. The patient can be discharged without antibiotics at any time. 2. We have decided not to treat his MAC so it is not necessary that he follow up in my clinic unless something changes with that. 3. I discussed this with the house staff and I will now be signing off.
--- NOTE | 2016-07-04 14:47 | NUR ---
Social Work-discharge: Data:EMR Reviewed. Pt is on day 3 of hospitalization for neck stiffness per H&P. Pt is ready to discharge home today. SW followed up with pt and at bedside to discuss discharge planning, SW role explained. Pt and are agreeable to returning home. and pt are not interested in having Home health again, they did not find this helpful. PT worked with pt today and cleared him for home, no needs ambulated 150 ft, SBA. SW called [facility] liaison [phone] and informed him that pt and declining services. Pt's to provide transport home today. No discharge needs identified. All updated and agreeable to plan. Assessment:Pt who is independent at baseline. Plan:Pt to discharge home today via POV. Pt and declining Services. No discharge needs identified. All updated and agreeable to plan [facility]
--- NOTE | 2016-07-04 15:42 | PCM.DC.MED ---
Discharge Summary Date of Service Jul 04, 2016 Dates of Hospitalization Date of Hospital Admission Jul 01, 2016 at 14:48 Date of Discharge: Jul 04, 2016 Providers: Admitting Physician: Wilfrid Long MD Primary Care Physician: Cy Soto MD Attending Physician: Wilfrid Long MD Diagnosis at Time of Discharge Diagnosis at Time of Discharge Acute neck stiffness Atrial fibrillation Hypertension Metabolically active, medially located left upper lobe lesion s/p radiation therapy COPD Type 2 diabetes Hyperlipidemia Sleep apnea with CPAP Consultations ID: Dr. Rob Medel Procedures XRay, CTs & MRIs CT BRAIN WITHOUT CONTRAST ([id number]) INDICATIONS: pain TECHNIQUE: Noncontrast 4.5 mm thick angled axial sections acquired from the foramen magnum to the vertex, with coronal reformats. IMPRESSION: No acute intracranial process Mild right maxillary sinus disease Dictated by: Earl Canas M.D. on 07/01/2016 at 13:[address] CERVICAL SPINE WITHOUT CONTRAST ([id number]) INDICATIONS: pain IMPRESSION: No acute fracture Severe diffuse cervical disc degeneration and facet arthropathy. Dictated by: Earl Canas M.D. on 07/01/2016 at 13:03 Brief History He was recently admitted and treated for pneumonia and influenza. After discharge he developed a fever up to 101 today and has had 3 days of increasing neck stiffness, quite severe. There has been no headache and no rash. His INR is too high at 2.8 to proceed with a spinal fluid tap and so the lumbar puncture will be deferred waiting for the fresh frozen plasma to bring the INR down. His presenting white blood count is only 11.3. There is no neck trauma. He will be given ceftriaxone as a precaution. The CT of the C-spine and brain are normal. He was just in the hospital 10 days ago for Influenza and Pneumonia, discharging after 2 nights on Tamiflu and Zithromax, which he has completed just 3 days ago. He has had a mild cough but no chest pain or shortness of breath. He is very [place] so his speaks for him. He also has early Alzheimers. Hospital Course Ricardo Tillman is an 86 year old male with history of COPD, asthma, lung cancer s/p radiation, recurrent aspiration pneumonia, diabetes mellitus, atrial fibrillation, hypertension, hyperlipidemia, and dementia, who presented to [facility] emergency department complaining of neck pain x3 day duration. He was admitted for evaluation and treatment of suspected meningitis. - Hospital day 3 Possible meningitis, acute, present on admission. Under therapy - Pt reported elev temp and neck stiffness on admission - No LP completed prior to abx admin secondary to therapeutic INR - On admit INR: 2.82; INR goal for LP < 1.5 - s/p FFP x3 - INR 1.55 as of 07/02 - Appreciate ID consult. Will not pursue LP based on ID recs. - Abx have already been started - BCx negative for staph aureus - Procalcitonin <0.05 today - Ceftriaxone 2g q12h, acyclovir 10mg/kg q8h, dexamethasone 10mg IV q6h x4 days stopped Atrial Fibrillation, chronic. Presumed stable -Continue Diltiazem - Considering pt's dementia and risk of adverse events, warfarin will NOT be continued at DC - Discussed with at bedside; she agrees - Recommend outpatient conversation with PCP Hypertension, chronic. Stable -Continue ACEi and Lasix Alzheimers Dementia, chronic. Stable -His has been helpful and the patient is not agitated or anxious, despite the neck pain Metabolically active, medially located left upper lobe lesion, chronic. Presumed stable - Seen on PET-CT scan dated December 30, 2014, without evidence of distant spread. The patient is status post definitive radiation therapy with Dr. Pimentel in June 2015. He remains in clinical remission at this time. COPD, stable -Duonebs QIDWA + accunebs q2h prn - Budesonide BID Type 2 diabetes, chronic. Stable -Continue Dietary control Hyperlipidemia, stable -Continue Lipitor Sleep apnea with use of CPAP, chronic. Stable - PRN: Fever/antiemetics/pain/bowel - DVT: SCDs - GI: None - Diet: General - Code: FULL CODE FOLLOW UP NEEDED: We have stopped the patient's anticoagulation on warfarin due to patient's state of dementia and risk of adverse events. Please further discuss with patient and family. Exam Vital Signs (Last) Date Time Temp Pulse Resp B/P Pulse Ox O2 Delivery O2 Flow Rate FiO2 07/04/16 13:06 36.6 76 20 97/60 95 Room Air 07/04/16 00:32 2.00 Test 07/01/16 08:33 07/01/16 11:33 1/8/17 13:55 07/03/16 09:22 Urine Color Yellow (YELLOW) Urine Appearance Clear (CLEAR,HAZY) Urine pH 8.0 (5.0-8.0) Urine Specific Garner 1.023 (1.003-1.035) Urine Protein Negativemg/dL (NEG,TRACE) Urine Glucose (UA) Negativemg/dL (NEGATIVE) Urine Ketones Negativemg/dL (NEGATIVE) Urine Occult Blood Trace (NEGATIVE) Urine Nitrite Negative (NEGATIVE) Urine Bilirubin Negative (NEGATIVE) Urine Urobilinogen Normalmg/dL (NORMAL) Urine Leukocyte Esterase Negative (NEGATIVE) Urine RBC 3-10/hpf (0-2) Urine WBC 0-5/hpf (0-5) Urine Epithelial Cells Few/hpf (NONE-MOD) Urine Crystals None seen (NONE SEEN) Urine Bacteria None/hpf (NONE-FEW) Urine Hyaline Casts None/lpf (NONE) Urine Granular Casts None seen (NONE SEEN) Urine Waxy Casts None seen (NONE SEEN) Urine Red Blood Cell Casts None seen (NONE SEEN) Urine White Blood Cell Casts None seen (NONE SEEN) Urine Mucus None seen (None Seen) Urine Trichomonas None seen (NONE SEEN) Urine Yeast None (NONE SEEN) Urinalysis Comment None Urine Culture Reflexed Not indicated Lactic Acid Level 1.4mmol/L (0.4-2.0) Total Bilirubin 0.5mg/dL (0.0-1.2) Aspartate Amino Transf (AST/SGOT) 26U/L (0-50) Alanine Aminotransferase (ALT/SGPT) 26U/L (0-44) Alkaline Phosphatase 53U/L (25-160) Total Protein 7.6g/dL (6.4-8.4) Albumin 3.1g/dL (3.4-5.0) Prothrombin Time 16.7sec (8.1-12.5) Prothromb Time International Ratio 1.55ratio C-Reactive Protein 7.6mg/dL (0.0-0.5) Procalcitonin < 0.05ng/mL (See Comment) Test 07/04/16 06:00 White Blood Count 22.2th/mm3 (3.8-10.1) Red Blood Count 3.80mil/mm3 (4.40-5.80) Hemoglobin 12.3g/dL (13.8-17.2) Hematocrit 36.2% (41.0-50.0) Mean Corpuscular Volume 95.3fL (81-100) Mean Corpuscular Hemoglobin 32.4pg (27.0-35.0) Mean Corpuscular Hemoglobin Concent 34.0% (32.0-37.0) Red Cell Distribution Width 13.7% (12.3-15.4) Platelet Count 222bil/L (150-400) Neutrophils (%) (Auto) 93.8% (40-74) Lymphocytes (%) (Auto) 2.6% (14-46) Monocytes (%) (Auto) 3.4% (4-12) Eosinophils (%) (Auto) 0% (0-5) Basophils (%) (Auto) 0% (0-3) Sodium Level 134mEq/L (134-144) Potassium Level 4.8mEq/L (3.5-5.2) Chloride Level 96mEq/L (97-108) Carbon Dioxide Level 25mmol/L (18-29) Blood Urea Nitrogen 31mg/dL (8-27) Creatinine 0.54mg/dL (0.76-1.27) Estimat Glomerular Filtration Rate 153mL/min (>59) Glucose Level 171mg/dL (60-99) Calcium Level 8.5mg/dL (8.5-10.1) Discharge Medications Discharge Medications Atorvastatin Calcium (Atorvastatin Calcium) 20 Mg Tablet 20 MG PO HS (Reported) Beclomethasone Dipropionate (Qvar) 8.7 Gm Aer.w.adap 1-2 PUFFS INH BID (Reported ) Benazepril (Benazepril) 20 Mg Tablet 10 MG PO DAILY (Reported) Diltiazem ER (Cartia XT) 120 Mg Cap.er.24h 120 MG PO BID (Reported) Furosemide (Furosemide) 40 Mg Tablet 40 MG PO daily to BID (Reported) Gabapentin (Gabapentin) 800 Mg Tablet 800 MG PO BID (Reported) Magnesium Oxide (Magnesium) 400 Mg Capsule 400 MG PO DAILY (Reported) Melatonin/Pyridoxine HCl (B6) (Melatonin 10 mg Tablet) 1 Each Tab.mphase 1 EACH PO HS (Reported) Memantine (Namenda) 10 Mg Tablet 10 MG PO BID (Reported) Girard-3/Dha/Epa/Fish Oil (Fish Oil 1,000 mg Softgel) 1 Each Capsule 1 EACH PO HS (Reported) Girard-3/Dha/Epa/Fish Oil (Fish Oil 1,000 mg Softgel) 1 Each Capsule 2 EACH PO QAM (Reported) Tiotropium [place] (Spiriva) 18 Mcg Cap.w.dev 18 MCG IH DAILY (Reported) As needed Acetaminophen (Acetaminophen) 325 Mg Capsule 650 MG PO BID PRN PRN For Pain ( Reported) Albuterol HFA (Proair HFA) 8.5 Gm Hfa.aer.ad 2 PUFFS INHALATION q4-6 hours PRN PRN For Shortness of Breath (Reported) Guaifenesin (Mucinex) 600 Mg Tablet.er 600 MG PO BID PRN PRN For Cough (Reported ) Additional med instructions STOP taking Coumadin. Followup Plan Disposition: Home Discharge Diet: Heart Healthy, Diabetic Discharge Activity: Limited until seen by PCP Patient Instructions STOP taking Coumadin. Follow-up Provider: Cy Soto MD Follow-up with PCP in: 1 week Time spent 32 minutes Attending Statement The patient was seen and examined together with Dr. Arboleda on 07/04/2016 and I agree with the history, exam and plan as outlined in the note above. copies to: Cy Soto MD, Fumiko O DO Jul 04, 2016 15:42 Nazario Doherty MD Jul 05, 2016 10:54 Atorvastatin Calcium (Atorvastatin Calcium) 20 Mg Tablet 20 MG PO HS (Reported) Beclomethasone Dipropionate (Qvar) 8.7 Gm Aer.w.adap 1-2 PUFFS INH BID (Reported ) Benazepril (Benazepril) 20 Mg Tablet 10 MG PO DAILY (Reported) Diltiazem ER (Cartia XT) 120 Mg Cap.er.24h 120 MG PO BID (Reported) Furosemide (Furosemide) 40 Mg Tablet 40 MG PO daily to BID (Reported) Gabapentin (Gabapentin) 800 Mg Tablet 800 MG PO BID (Reported) Magnesium Oxide (Magnesium) 400 Mg Capsule 400 MG PO DAILY (Reported) Melatonin/Pyridoxine HCl (B6) (Melatonin 10 mg Tablet) 1 Each Tab.mphase 1 EACH PO HS (Reported) Memantine (Namenda) 10 Mg Tablet 10 MG PO BID (Reported) Girard-3/Dha/Epa/Fish Oil (Fish Oil 1,000 mg Softgel) 1 Each Capsule 1 EACH PO HS (Reported) Girard-3/Dha/Epa/Fish Oil (Fish Oil 1,000 mg Softgel) 1 Each Capsule 2 EACH PO QAM (Reported) Tiotropium [place] (Spiriva) 18 Mcg Cap.w.dev 18 MCG IH DAILY (Reported) As needed Acetaminophen (Acetaminophen) 325 Mg Capsule 650 MG PO BID PRN PRN For Pain ( Reported) Albuterol HFA (Proair HFA) 8.5 Gm Hfa.aer.ad 2 PUFFS INHALATION q4-6 hours PRN PRN For Shortness of Breath (Reported) Guaifenesin (Mucinex) 600 Mg Tablet.er 600 MG PO BID PRN PRN For Cough (Reported ) Additional med instructions STOP taking Coumadin. Followup Plan Disposition: Home Discharge Diet: Heart Healthy, Diabetic Discharge Activity: Limited until seen by PCP Patient Instructions STOP taking Coumadin. Follow-up Provider: Cy Soto MD Follow-up with PCP in: 1 week copies to: Cy Soto MD, Fumiko O DO Jul 04, 2016 15:42
--- NOTE | 2016-07-04 16:28 | NUR ---
discharge went over dc instructions with pt and who both verbally acknowledged understanding. removed intact IV and tele box. pt left in wheelchair with [employer] and . no s/s of distress at time of dc
[2016-12-04] MEDS ORDERED: ARED 2 PO (15:34)
== END 2016-07-04 15:35 | disposition home or self-care (01) | DRG 552 ==
LOC: SED 10:49 → MPC 14:48 → OBSVTOIN 14:48
PROVIDERS: ADMIT Family Medicine; ATTEND Family Medicine
PROC: 30233K1 Transfusion of Nonautologous Frozen Plasma into Peripheral Vein, Percutaneous Approach (ICD-10-PCS; principal; 2016-07-01)
PROC: 30233K1 Transfusion of Nonautologous Frozen Plasma into Peripheral Vein, Percutaneous Approach (ICD-10-PCS; 2016-07-02)
DX: M54.2 Cervicalgia (principal); I48.2 Chronic atrial fibrillation; I10 Essential (primary) hypertension; J44.9 Chronic obstructive pulmonary disease, unspecified; E78.5 Hyperlipidemia, unspecified; G47.30 Sleep apnea, unspecified; R50.9 Fever, unspecified; F02.80 Dementia in other diseases classified elsewhere, unspecified severity, without behavioral disturbance, psychotic disturbance, mood disturbance, and anxiety; R79.1 Abnormal coagulation profile; Z79.01 Long term (current) use of anticoagulants; Z85.118 Personal history of other malignant neoplasm of bronchus and lung; Z92.3 Personal history of irradiation; Z87.891 Personal history of nicotine dependence